=== PATIENT | male | born 1965 | race Hispanic/Latino ===

== ENCOUNTER 2018-11-18 20:44 | Emergency (ER) | payer BC ==
[2018-11-18] MEDS ORDERED: TETANUS/DIPHTHERIA TOXOID [ADULT] 0.5 ML VIAL IM ONE (21:01)
[2018-11-18] MEDS ORDERED: CEFAZOLIN SODIUM 1 GM VIAL ONE (21:35)
== END 2018-11-18 22:34 | disposition home or self-care (01) ==
LOC: EDH 20:44
DX: S92.211B Displaced fracture of cuboid bone of right foot, initial encounter for open fracture (principal); I10 Essential (primary) hypertension; E78.5 Hyperlipidemia, unspecified; W22.8XXA Striking against or struck by other objects, initial encounter; Y93.89 Activity, other specified; Y92.89 Other specified places as the place of occurrence of the external cause; Y99.8 Other external cause status
CPT/HCPCS: 12042; 73630; 90471; 90714; 96372; 99284; J0690